=== PATIENT | female | born 1960 | race Caucasian/White ===

== ENCOUNTER 2019-02-09 02:59 | Emergency (ER) | payer MEDICAID ==
[~2019-02-09] VITALS: Ht 154.9 cm; Wt 78.0 kg
[2019-02-09] MEDS ORDERED: ALBUTEROL (0.083%) 2.5MG/3ML NEB HHN STA (07:02)
[2019-02-09] MEDS ORDERED: IPRATROPIUM BROMIDE (0.02%) 0.5MG/2.5ML NEB HHN STA (07:02)
[2019-02-09] MEDS ORDERED: PREDNISONE 20MG TABLET PO STA (07:02)
[2019-02-09] MEDS ORDERED: IBUPROFEN 600MG TABLET PO ONE (07:30)
[2019-02-09] MEDS ORDERED: KETOROLAC 30MG/ML VIAL IV STA (08:29)
[2019-02-09] MEDS ORDERED: SODIUM CHLORIDE 0.9% 1000ML BAG (SEPSIS BOLUS) IV ONE (08:30)
[2019-02-09 08:59] LABS: CLARITY URINE CLEAR (CLEAR); COLOR URINE YELLOW (YELLOW); KETONES URINE 1+ (NEGATIVE); LEUKOCYTE ESTERASE URINE NEGATIVE (NEGATIVE); NITRITE URINE NEGATIVE (NEGATIVE); OCCULT BLOOD URINE NEGATIVE (NEGATIVE); PROTEIN URINE NEGATIVE (NEGATIVE); SPECIFIC GRAVITY URINE 1.028 (1.005-1.030); UROBILINOGEN URINE 0.2 E.U./dL (0.2-1.0)
[2019-02-09 09:25] LABS: CHLORIDE 105 mEq/L (98-107)
[2019-02-09 09:30] LABS: BASOPHILS % 0.5 % (0.0-2.0); EOSINOPHILS % 0.4 % (0.0-5.0); HEMATOCRIT. 42.3 % (36.0-48.0); HEMOGLOBIN. 13.9 g/dL (12.0-16.0); LYMPHOCYTES % 14.2 % (20.0-50.0); MEAN CORPUSCULAR VOLUME 82.5 fL (81.0-99.0); MEAN PLATELET VOLUME 8.8 fl (7.4-10.4); MONOCYTES % 2.6 % (2.0-8.0); NEUTROPHILS % 82.3 % (40.0-76.0); PLATELET 329 x1000/uL (130-400); RED BLOOD CELL COUNT 5.13 mill/uL (4.2-5.4); RED CELL DISTRIBUTION WIDTH 13.9 % (11.6-14.6)
[2019-02-09 12:06] VITALS: BP 131/84
== END 2019-02-09 12:46 | disposition home or self-care (01) ==
LOC: ER 02:59 → EDBEDREQSVC 08:47 → ER 12:46 → CANBEDREQ 15:53
DX: J20.9 Acute bronchitis, unspecified (principal)
CPT/HCPCS: 36415; 71045; 80053; 81003; 81025; 83605; 84145; 84484; 85025; 87040; 87086; 93005; 94640; 99284; J7030; J7512; J7611; J1885

== ENCOUNTER 2022-06-19 00:30 | Emergency (ER) | payer MEDICAID ==
[~2022-06-19] VITALS: Ht 154.9 cm; Wt 83.3 kg
[2022-06-19] MEDS ORDERED: METHYLPREDNISOLONE SOD SUCC 125 MG/2 ML VIAL IV STA (01:28)
[2022-06-19] MEDS ORDERED: IPRATROPIUM BROMIDE (0.02%) 0.5MG/2.5ML NEB HHN STA (01:28)
[2022-06-19] MEDS ORDERED: ALBUTEROL (0.083%) 2.5MG/3ML NEB HHN STA (01:28)
[2022-06-19] MEDS ORDERED: MAGNESIUM 2 G PREMIX 50 ML IV ONE (01:30)
[2022-06-19] MEDS ORDERED: ALBU6.7H9 INH (03:43)
[2022-06-19] MEDS ORDERED: PRED10TA MT (03:43)
[2022-06-19 04:00] VITALS: BP 123/64
== END 2022-06-19 04:25 | disposition home or self-care (01) ==
LOC: ER 00:39
DX: J45.40 Moderate persistent asthma, uncomplicated (principal); R00.0 Tachycardia, unspecified; R03.0 Elevated blood-pressure reading, without diagnosis of hypertension
CPT/HCPCS: 71045; 93005; 94640; 96365; 96366; 96375; 99284; J2930; J3475; Z7610

== ENCOUNTER 2022-12-30 17:29 | Emergency (ER) | payer MEDICAID ==
[~2022-12-30] VITALS: Ht 167.6 cm; Wt 75.0 kg
[~2022-12-30 17:29] MED LIST: ALBU6.7H3 INH; PRED10TA MT
[2022-12-30 17:38] VITALS: BP 169/119
[2022-12-30] MEDS ORDERED: IPRATROPIUM BROMIDE (0.02%) 0.5MG/2.5ML NEB HHN STA (18:53)
[2022-12-30] MEDS ORDERED: ALBUTEROL (0.083%) 2.5MG/3ML NEB HHN STA (18:53)
[2022-12-30] MEDS ORDERED: PREDNISONE 20MG TABLET PO STA (18:53)
[2022-12-30] MEDS ORDERED: IPRATROPIUM BROMIDE (0.02%) 0.5MG/2.5ML NEB ONE (20:54)
[2022-12-30] MEDS ORDERED: ALBUTEROL (0.083%) 2.5MG/3ML NEB ONE (20:54)
[2022-12-30] MEDS ORDERED: MAGNESIUM 2 G PREMIX 50 ML IV STA (22:03)
[2022-12-30] MEDS ORDERED: P50 PO (22:25)
== END 2022-12-30 22:52 | disposition home or self-care (01) ==
LOC: ER 17:29
DX: J45.901 Unspecified asthma with (acute) exacerbation (principal); R03.0 Elevated blood-pressure reading, without diagnosis of hypertension
CPT/HCPCS: 71045; 94644; 99285; Z7610

== ENCOUNTER 2023-07-05 00:17 | Inpatient (IN) | payer MEDICAID ==
[~2023-07-05] VITALS: Ht 156.2 cm; Wt 81.6 kg
[~2023-07-05 00:17] MED LIST changes: +P50 PO
[2023-07-05 01:57] LABS: BASOPHILS % 1.6 % (0.0-2.0); CHLORIDE 109 mEq/L (98-107); DIFFERENTIAL COMMENT 0; EOSINOPHILS % 13.7 % (0.0-5.0); HEMATOCRIT. 39.4 % (36.0-48.0); HEMOGLOBIN. 13.1 g/dL (12.0-16.0); INDEX HEMOLYSI 1 (1-3); INDEX ICTERIC 1 (1-4); INDEX LIPEMIC 1 (1-3); LYMPHOCYTES % 29.1 % (20.0-50.0); MEAN CORPUSCULAR HEMOGLOBIN 26.5 pg (28.0-32.0); MEAN CORPUSCULAR HGB CONC 33.2 g/dL (31.0-37.0); MEAN CORPUSCULAR VOLUME 79.7 fL (81.0-99.0); MEAN PLATELET VOLUME 8.3 fl (7.4-10.4); MONOCYTES % 5.8 % (2.0-8.0); NEUTROPHILS % 49.8 % (40.0-76.0); PLATELET 318 x1000/uL (130-400); POTASSIUM 3.9 mEq/L (3.5-5.1); RED BLOOD CELL COUNT 4.95 mill/uL (4.2-5.4); RED CELL DISTRIBUTION WIDTH 15.6 % (11.6-14.6); SODIUM 141 mEq/L (136-145); WHITE BLOOD COUNT 8.5 x1000/uL (4.5-11.0)
[2023-07-05 04:16] LABS: ALANINE AMINOTRANSFERASE 46 IU/L (13-61); ALBUMIN 3.7 g/dL (3.4-5.0); ASPARTATE AMINOTRANSFERASE 24 IU/L (15-37); BILIRUBIN TOTAL 0.3 mg/dL (0.1-1.0); CARBON DIOXIDE 25 mEq/L (21-32); CREATININE 0.7 mg/dL (0.6-1.3); GLUCOSE 130 mg/dL (70-105); NT PRO B-TYPE NATRIURETIC PEP 10 pg/mL (5-125); PROTEIN TOTAL 7.6 g/dL (6.0-8.3); TROPONIN I HIGH SENSITIVITY 8 ng/L (<54); UREA NITROGEN BLOOD 16 mg/dL (7-21)
[2023-07-05 05:38] LABS: TROPONIN I HIGH SENSITIVITY 9 ng/L (<54)
[2023-07-05] MEDS ORDERED: MAGNESIUM 2 G PREMIX 50 ML IV STA (06:36)
[2023-07-05] MEDS ORDERED: ALBUTEROL (0.083%) 2.5MG/3ML NEB HHN STA (06:36)
[2023-07-05] MEDS ORDERED: METHYLPREDNISOLONE SOD SUCC 125MG/2ML (ACT-O-VIAL) IV STA (06:36)
[2023-07-05] MEDS ORDERED: IPRATROPIUM BROMIDE (0.02%) 0.5MG/2.5ML NEB HHN STA (06:36)
[2023-07-05 07:06] VITALS: PULSE 98; RESP 18; O2SAT 98
[2023-07-05] MEDS ORDERED: METHYLPREDNISOLONE SOD SUCC 125MG VIAL IV NR (07:15)
[2023-07-05] MEDS ORDERED: DOCUSATE SODIUM 100MG CAPSULE PO PRN (10:15)
[2023-07-05] MEDS ORDERED: IPRATROPIUM/ALBUTEROL 0.5-3(2.5)MG/3ML NEB HHN PRN (10:15)
[2023-07-05] MEDS ORDERED: MAGNESIUM/ALUMINUM HYDROXIDE/SIMETHICONE 30ML UDC PO PRN (10:15)
[2023-07-05] MEDS ORDERED: ACETAMINOPHEN 325MG TABLET PO PRN ×2 (10:15)
[2023-07-05] MEDS ORDERED: ONDANSETRON HCL 4MG/2ML INJ IV PRN (10:15)
[2023-07-05] MEDS ORDERED: LORAZEPAM 0.5MG TABLET PO PRN (10:15)
[2023-07-05] MEDS ORDERED: DEXTROSE 50% WATER 50ML SYRINGE IV PRN (10:15)
[2023-07-05] MEDS ORDERED: CLONIDINE 0.1MG TABLET PO PRN (10:15)
[2023-07-05] MEDS ORDERED: BUDESONIDE 0.5MG/2ML NEB HHN SCH (12:00)
[2023-07-05] MEDS ORDERED: IPRATROPIUM/ALBUTEROL 0.5-3(2.5)MG/3ML NEB HHN SCH (12:00)
[2023-07-05 12:28] LABS: PROTHROMBIN TIME 10.7 sec (9.6-11.0)
[2023-07-05 12:37] LABS: PHOSPHORUS 1.8 mg/dL (2.5-4.9)
[2023-07-05 12:58] LABS: LACTIC ACID 5.1 mmol/L (0.4-2.0)
[2023-07-05] MEDS: BLOOD SUGAR DIAGNOSTIC STRIP TEST SCH ×3 (13:00→20:30)
[2023-07-05 14:23] LABS: BG BASE EXCESS -1.6 mmol/L (-2.0-2.0); BG CARBOXYHEMOGLOBIN 0.4 % (0.5-1.5); BG DEOXYHEMOGLOBIN 5.3 % (0.0-5.0); BG FRACTION INSPIRED OXYGEN 21; BG HCO3 ACT 22.3 mmol/L (22.0-26.0); BG METHEMOGLOBIN 0.2 % (0.0-1.5); BG OXYGEN SATURATION 94.7 % (92.0-98.5); BG OXYHEMOGLOBIN 94.1 % (94.0-97.0); BG PCO2 35.1 mmHg (35.0-45.0); BG PO2 72.2 mmHg (75.0-100.0); BG SAMPLE SITE RIGHT RADIAL; BG TOTAL HEMOGLOBIN 13.8 g/dL (12.0-18.0); BG VENT MODE ROOM AIR
[2023-07-05 16:29] VITALS: BP 154/70; PULSE 83; RESP 18; TEMP 98.4
[2023-07-05 16:37] LABS: INDEX HEMOLYSI 1 (1-3)
[2023-07-05 16:46] LABS: CREATINE KINASE 41 IU/L (26-192); CREATINE KINASE MB FRACTION < 1.0 ng/mL (0.5-3.6); TROPONIN I HIGH SENSITIVITY 8 ng/L (<54)
[2023-07-05 16:47] VITALS: BP 154/70; PULSE 83; RESP 18; TEMP 98.4
[2023-07-05] MEDS: INSULIN LISPRO 100 UNITS/ML SUBCUT SCH ×3 (17:20→20:38)
[2023-07-05] MEDS: ENOXAPARIN 40MG/0.4ML SYR SUBCUT SCH (18:21)
[2023-07-05 19:50] LABS: HEPATITIS B SURFACE ANTIGEN NEGATIVE
[2023-07-05 20:00] VITALS: BP 139/85; PULSE 113; RESP 28; TEMP 98.5
[2023-07-05] MEDS: GUAIFENESIN/DM 600MG/30MG ER TAB 12HR PO SCH (20:36)
[2023-07-05] MEDS: AZITHROMYCIN 500 MG in DEXT 5% WATER 250 ML IV SCH (22:42)
[2023-07-05] MEDS: SODIUM CHLORIDE 0.45% 1,000 ML IV SCH (22:43)
[2023-07-05 23:32] LABS: INDEX HEMOLYSI 1 (1-3)
[2023-07-05 23:38] LABS: CREATINE KINASE 44 IU/L (26-192); CREATINE KINASE MB FRACTION < 1.0 ng/mL (0.5-3.6); TROPONIN I HIGH SENSITIVITY 8 ng/L (<54)
[2023-07-05 23:39] LABS: CLARITY URINE CLEAR (CLEAR); COLOR URINE YELLOW (YELLOW); GLUCOSE URINE 2+ (NEGATIVE); KETONES URINE 1+ (NEGATIVE); LEUKOCYTE ESTERASE URINE NEGATIVE (NEGATIVE); NITRITE URINE NEGATIVE (NEGATIVE); OCCULT BLOOD URINE NEGATIVE (NEGATIVE); PROTEIN URINE NEGATIVE (NEGATIVE); SPECIFIC GRAVITY URINE 1.038 (1.005-1.030); UROBILINOGEN URINE 0.2 E.U./dL (0.2-1.0)
[2023-07-05 23:52] LABS: *AMPHETAMINES SCREEN URINE NEGATIVE (NEGATIVE); *BARBITURATES SCREEN URINE NEGATIVE (NEGATIVE); *BENZODIAZEPINES SCREEN URINE NEGATIVE (NEGATIVE); *COCAINE SCREEN URINE NEGATIVE (NEGATIVE); CANNABINOID URINE SCREEN NEGATIVE (NEGATIVE); ECSTASY MDMA SCREEN URINE NEGATIVE (NEGATIVE); METHADONE URINE SCREEN NEGATIVE (NEGATIVE); OPIATES URINE SCREEN NEGATIVE (NEGATIVE); PHENCYCLIDINE URINE SCREEN NEGATIVE (NEGATIVE)
[2023-07-05 23:53] LABS: WBC URINE 0-2 /hpf (0-2)
[2023-07-05 23:54] LABS: BACTERIA URINE TRACE; RBC URINE 0-2 /hpf (0-2); SQUAMOUS EPITHELIAL CELL URINE RARE /lpf (RARE/1+)
[2023-07-06] VITALS: BP 131/84; PULSE 102; RESP 20; TEMP 98.5
[2023-07-06 03:15] VITALS: BP 117/75; PULSE 93; RESP 19; TEMP 98.7
[2023-07-06 06:47] LABS: BASOPHILS % 0.2 % (0.0-2.0); HEMATOCRIT. 36.9 % (36.0-48.0); HEMOGLOBIN. 12.3 g/dL (12.0-16.0); LYMPHOCYTES % 11.8 % (20.0-50.0); MEAN CORPUSCULAR HGB CONC 33.3 g/dL (31.0-37.0); MEAN PLATELET VOLUME 8.5 fl (7.4-10.4); MONOCYTES % 3.6 % (2.0-8.0); NEUTROPHILS % 84.4 % (40.0-76.0); PLATELET 321 x1000/uL (130-400); RED BLOOD CELL COUNT 4.56 mill/uL (4.2-5.4); RED CELL DISTRIBUTION WIDTH 15.4 % (11.6-14.6); WHITE BLOOD COUNT 13.6 x1000/uL (4.5-11.0)
[2023-07-06] MEDS: GUAIFENESIN/DM 600MG/30MG ER TAB 12HR PO SCH ×2 (06:53→17:15)
[2023-07-06] MEDS: BLOOD SUGAR DIAGNOSTIC STRIP TEST SCH ×4 (06:53→20:16)
[2023-07-06] MEDS: INSULIN LISPRO 100 UNITS/ML SUBCUT SCH ×4 (07:20→20:16)
[2023-07-06 07:29] LABS: CHLORIDE 109 mEq/L (98-107); INDEX HEMOLYSI 1 (1-3); INDEX ICTERIC 1 (1-4); INDEX LIPEMIC 1 (1-3); POTASSIUM 4.1 mEq/L (3.5-5.1); SODIUM 137 mEq/L (136-145)
[2023-07-06 07:46] LABS: ALANINE AMINOTRANSFERASE 41 IU/L (13-61); ALBUMIN 3.5 g/dL (3.4-5.0); ASPARTATE AMINOTRANSFERASE 20 IU/L (15-37); BILIRUBIN TOTAL 0.3 mg/dL (0.1-1.0); CALCIUM 8.6 mg/dL (8.5-10.1); CARBON DIOXIDE 25 mEq/L (21-32); CHOLESTEROL 194 mg/dL (<200); CREATININE 0.6 mg/dL (0.6-1.3); GLUCOSE 127 mg/dL (70-105); HDL CHOLESTEROL 62 mg/dL (40-59); LDL CHOLESTEROL 128 mg/dL (5-100); PROTEIN TOTAL 7.1 g/dL (6.0-8.3); T4 FREE 1.02 ng/dL (0.76-1.46); THYROID STIMULATING HORMONE 0.58 uIU/mL (0.36-3.74); TRIGLYCERIDE 73 mg/dL (0-150); UREA NITROGEN BLOOD 16 mg/dL (7-21)
[2023-07-06 08:00] VITALS: BP 124/90; PULSE 87; RESP 24; TEMP 98.4
[2023-07-06 10:04] LABS: BG BASE EXCESS 0.5 mmol/L (-2.0-2.0); BG CARBOXYHEMOGLOBIN 0.4 % (0.5-1.5); BG DEOXYHEMOGLOBIN 5.2 % (0.0-5.0); BG FRACTION INSPIRED OXYGEN 21; BG HCO3 ACT 24.9 mmol/L (22.0-26.0); BG METHEMOGLOBIN 0.3 % (0.0-1.5); BG OXYGEN SATURATION 94.8 % (92.0-98.5); BG OXYHEMOGLOBIN 94.1 % (94.0-97.0); BG PCO2 39.2 mmHg (35.0-45.0); BG PO2 72.3 mmHg (75.0-100.0); BG SAMPLE SITE LEFT BRACHIAL; BG TOTAL HEMOGLOBIN 13.8 g/dL (12.0-18.0); BG VENT MODE ROOM AIR
[2023-07-06] MEDS ORDERED: FLUT1DIS3 INH (11:48)
[2023-07-06] MEDS ORDERED: MED4 MT (11:48)
[2023-07-06] MEDS: PREDNISONE 20MG TABLET PO SCH (11:56)
[2023-07-06] MEDS: SODIUM CHLORIDE 0.45% 1,000 ML IV SCH (11:56)
[2023-07-06 12:00] VITALS: BP 121/74; PULSE 61; RESP 19; TEMP 98.5
[2023-07-06] MEDS ORDERED: BENZONATATE 100MG CAPSULE PO PRN (12:00)
[2023-07-06 16:31] VITALS: BP 143/77; PULSE 78; RESP 12; TEMP 98.3
[2023-07-06] MEDS: MONTELUKAST SODIUM 10MG TABLET PO SCH (16:37)
[2023-07-06] MEDS: ENOXAPARIN 40MG/0.4ML SYR SUBCUT SCH (17:16)
[2023-07-06 19:51] VITALS: BP 163/84; PULSE 84; RESP 17; TEMP 97.7
[2023-07-06] MEDS: AZITHROMYCIN 500 MG in DEXT 5% WATER 250 ML IV SCH (20:16)
[2023-07-07 00:26] VITALS: BP 125/75; PULSE 66; RESP 16; TEMP 97.7
[2023-07-07 04:00] VITALS: BP 117/74; PULSE 57; RESP 16; TEMP 97.9
[2023-07-07] MEDS: GUAIFENESIN/DM 600MG/30MG ER TAB 12HR PO SCH ×2 (05:56→17:48)
[2023-07-07] MEDS: BLOOD SUGAR DIAGNOSTIC STRIP TEST SCH ×3 (05:56→16:50)
[2023-07-07 06:53] LABS: BASOPHILS % 0.5 % (0.0-2.0); EOSINOPHILS % 1.8 % (0.0-5.0); HEMATOCRIT. 37.8 % (36.0-48.0); HEMOGLOBIN. 12.6 g/dL (12.0-16.0); LYMPHOCYTES % 35.6 % (20.0-50.0); MEAN CORPUSCULAR HEMOGLOBIN 27.1 pg (28.0-32.0); MEAN CORPUSCULAR HGB CONC 33.3 g/dL (31.0-37.0); MEAN CORPUSCULAR VOLUME 81.3 fL (81.0-99.0); MEAN PLATELET VOLUME 8.5 fl (7.4-10.4); MONOCYTES % 4.3 % (2.0-8.0); NEUTROPHILS % 57.8 % (40.0-76.0); PLATELET 333 x1000/uL (130-400); RED BLOOD CELL COUNT 4.65 mill/uL (4.2-5.4); RED CELL DISTRIBUTION WIDTH 15.6 % (11.6-14.6); WHITE BLOOD COUNT 10.6 x1000/uL (4.5-11.0)
[2023-07-07] MEDS: INSULIN LISPRO 100 UNITS/ML SUBCUT SCH ×3 (07:20→17:20)
[2023-07-07 08:00] VITALS: BP 136/88; PULSE 88; RESP 18; TEMP 98.3
[2023-07-07 08:18] LABS: INDEX HEMOLYSI 1 (1-3); INDEX ICTERIC 1 (1-4); INDEX LIPEMIC 1 (1-3)
[2023-07-07 08:24] LABS: ALANINE AMINOTRANSFERASE 50 IU/L (13-61); ALBUMIN 3.5 g/dL (3.4-5.0); ASPARTATE AMINOTRANSFERASE 24 IU/L (15-37); BILIRUBIN TOTAL 0.5 mg/dL (0.1-1.0); CALCIUM 8.8 mg/dL (8.5-10.1); CARBON DIOXIDE 27 mEq/L (21-32); CHLORIDE 108 mEq/L (98-107); CREATININE 0.7 mg/dL (0.6-1.3); GLUCOSE 90 mg/dL (70-105); POTASSIUM 3.6 mEq/L (3.5-5.1); PROTEIN TOTAL 6.9 g/dL (6.0-8.3); SODIUM 139 mEq/L (136-145); UREA NITROGEN BLOOD 19 mg/dL (7-21)
[2023-07-07 10:20] LABS: BG BASE EXCESS -0.8 mmol/L (-2.0-2.0); BG CARBOXYHEMOGLOBIN 0.3 % (0.5-1.5); BG DEOXYHEMOGLOBIN 3.8 % (0.0-5.0); BG FRACTION INSPIRED OXYGEN 21; BG HCO3 ACT 23.2 mmol/L (22.0-26.0); BG METHEMOGLOBIN 0.3 % (0.0-1.5); BG OXYGEN SATURATION 96.2 % (92.0-98.5); BG OXYHEMOGLOBIN 95.6 % (94.0-97.0); BG PCO2 36.2 mmHg (35.0-45.0); BG PH 7.424 (7.350-7.450); BG SAMPLE SITE RIGHT BRACHIAL; BG TOTAL HEMOGLOBIN 14.1 g/dL (12.0-18.0); BG VENT MODE ROOM AIR
[2023-07-07 12:00] VITALS: BP 129/89; PULSE 88; RESP 18; TEMP 98.3
[2023-07-07] MEDS: PREDNISONE 20MG TABLET PO SCH (12:23)
[2023-07-07] MEDS ORDERED: ALBU6.7H15 INH (13:38)
[2023-07-07 16:00] VITALS: BP 129/87; PULSE 88; RESP 18; TEMP 98.3
[2023-07-07 16:49] VITALS: BP 125/80; PULSE 88; TEMP 98.3; O2SAT 97
[2023-07-07] MEDS: MONTELUKAST SODIUM 10MG TABLET PO SCH (17:40)
[2023-07-07] MEDS: ENOXAPARIN 40MG/0.4ML SYR SUBCUT SCH (17:41)
[2023-07-08] MEDS ORDERED: AZITHROMYCIN 500 MG TABLET PO SCH (21:00)
== END 2023-07-07 19:00 | disposition home or self-care (01) | DRG 141 ==
LOC: ER 00:17 → 3WST 09:54 → EDBEDREQTM 09:58 → EDBEDREQ 09:58
PROVIDERS: ADMIT Internal Medicine; ATTEND Internal Medicine
DX: J45.901 Unspecified asthma with (acute) exacerbation (principal); D72.10 Eosinophilia, unspecified; Z20.822 Contact with and (suspected) exposure to COVID-19; L73.8 Other specified follicular disorders; R73.03 Prediabetes; E78.5 Hyperlipidemia, unspecified; Z79.51 Long term (current) use of inhaled steroids; Z79.899 Other long term (current) drug therapy
CPT/HCPCS: 36415; 36600; 71045; 80053; 80061; 80305; 81003; 82010; 82375; 82550; 82553; 82805; 82962; 83036; 83605; 83735; 83880; 84100; 84145; 84439; 84443; 84484; 85025; 85379; 85651; 86803; 87340; 87426; 93005; 93306; 93970; 94644; 97161; 97165; 99285; A4565; J0456; J1650; J1815; J2930; J3475; J7060; J7512

== ENCOUNTER 2025-08-18 02:09 | Emergency (ER) | payer MEDICAID ==
[~2025-08-18] VITALS: Ht 152.4 cm; Wt 83.3 kg
[~2025-08-18 02:09] MED LIST changes: +ALBU6.7H15 INH; +FLUT1DIS3 INH; +METH4TAB95 MT
[2025-08-18 02:25] VITALS: TEMP 36.4; O2SAT 98
[2025-08-18 03:35] LABS: BASOPHILS % 0.5 % (0.0-2.0); EOSINOPHILS % 0.6 % (0.0-5.0); HEMATOCRIT. 39.3 % (36.0-48.0); HEMOGLOBIN. 12.7 g/dL (12.0-16.0); LYMPHOCYTES % 13.4 % (20.0-50.0); MEAN PLATELET VOLUME 8.2 fl (7.4-10.4); MONOCYTES % 2.0 % (2.0-8.0); NEUTROPHILS % 83.5 % (40.0-76.0); PLATELET 343 x1000/uL (130-400); RED BLOOD CELL COUNT 4.85 mill/uL (4.2-5.4); RED CELL DISTRIBUTION WIDTH 15.5 % (11.6-14.6)
[2025-08-18] MEDS: ONDANSETRON HCL 4MG/2ML INJ IV ONE (03:36)
[2025-08-18] MEDS: FAMOTIDINE 20MG/2ML VIAL IV ONE (03:36)
[2025-08-18] MEDS: SODIUM CHLORIDE 0.9% 1,000 ML IV ONE (03:37)
[2025-08-18] MEDS: KETOROLAC 15MG/ML VIAL IV ONE (03:48)
[2025-08-18 03:54] LABS: CREATININE 0.7 mg/dL (0.6-1.0)
[2025-08-18 03:55] LABS: TROPONIN I HIGH SENSITIVITY 7 ng/L (3.0-34); UREA NITROGEN BLOOD 16 mg/dL (9-23)
[2025-08-18 03:56] LABS: ASPARTATE AMINOTRANSFERASE 30 IU/L (<34)
[2025-08-18 03:57] LABS: BILIRUBIN TOTAL 0.3 mg/dL (0.1-1.0); PROTEIN TOTAL 7.3 g/dL (6.0-8.3)
[2025-08-18] MEDS ORDERED: ONDA-239 PO (05:38)
[2025-08-18] MEDS ORDERED: IBUP-1455 MT (05:38)
[2025-08-18 05:50] VITALS: BP 124/63; PULSE 76; RESP 16; O2SAT 97
== END 2025-08-18 05:55 | disposition home or self-care (01) ==
LOC: ER 02:09
DX: R11.2 Nausea with vomiting, unspecified (principal); R00.2 Palpitations; J45.909 Unspecified asthma, uncomplicated; Z79.52 Long term (current) use of systemic steroids; Z79.51 Long term (current) use of inhaled steroids; Z98.890 Other specified postprocedural states; Z79.899 Other long term (current) drug therapy
CPT/HCPCS: 80053; 83690; 85025; 86850; 86900; 86901; 84484; 36415; 71045; 93005; 96361; 96374; 96375; 99285; J1308; J1885; J2405; J7030; Z7610 ×2